=== PATIENT | male | born 1985 | race Two or more races ===

== ENCOUNTER 2022-08-28 15:00 | Outpatient (CLI) | payer OTHER ==
--- NOTE | 2022-08-28 15:46 | Sleep Patient Instructions ---
Sleep Center Visit Summary - Patient Visit Information Reason for Visit: Initial consult with patient on PAP therapy - Patient Instructions Additional Instructions: You will continue with CPAP therapy with pressure set at 10 cmH2O. A supply prescription will be updated with your DME. We encourage you to continue to try to lose weight. Please follow up with the sleep care office in 1 year. - Clinic Information Contact: [facility] [address] [place] [address] [email or web address] T: [phone]
--- NOTE | 2022-08-28 15:53 | SLEEP CARE CONSULTATION ---
Information from patient questionnaire entered by Carl Castro. I have reviewed and concur with the information entered by Carl Castro. This document represents the service I personally performed and the decisions made by me, Lexi Hyde ARNP. History of Present Illness Service Date and Time: 08/28/2022 1500 Reason for Visit: New patient Chief Complaint: reports: Unrefreshed sleep, Snoring Date of Onset: 2-3+YRS Usual bedtime: 8-9PM 12AM ON WEEKENDS Time it takes to fall asleep: QUICK Snores at night: Yes Observed to quit breathing while asleep: Yes Sleeps alone due to snoring: Yes Number of times waking at night: 2-3 Reasons for waking at night: reports: Snoring, Bathroom, Other (UNKNOWN) Toss, Turn, or Twitch while sleeping: Yes Recalls having dreams: Yes Usually gets out of bed at: 0430 WEEK 0800 WEEKENDS Feels refreshed in the morning: Yes Morning headache: Yes Sleepy or fatigued during the day: No Ever fallen asleep while driving: No Takes day naps: No Dreams during day naps: No Prior sleep studies: Yes Year and Where: [facility] [place], [place] 05/22/2020 Additional HPI information: ESTEE WEST was previously diagnosed to have mild, AHI 11, obstructive sleep apnea-hypopnea syndrome as seen in sleep study dated 05/22/2020 through [facility] in [place] and comes in today to establish care for CPAP therapy. - Parasomnia Symptoms Ever been unable to move upon waking from sleep: No Walks in sleep: No Talks in sleep: No Ever acted out dreams in sleep: No Ever felt weak in the knees when startled or emotional: No Bothered by creepy, crawly, restless sensations in legs: No Problems with memory or concentration: Yes CPAP Compliance Data - Data Reviewed with Patient Average duration of nightly device use: 3 hours 19 minutes Compliance rate %: 22 (55/90 days used) Current pressure setting (cmH2O): 10 Average residual AHI: 2.3 Central apnea: 0.5 Obstructive apnea: 1 Hypopnea: 0.7 Compliance data discussion: He has an Airsense 10 that was set up in 2020. He has been getting supplies through clinic in [place] in mail. He is using a full face mask. He does have extra supplies as needed. Subjective Missed days of use due to: reports: illness (bronchitis limiting use), other (will take mask off or disconnect without using knowing) Patient concerns: denies: aerophagia, mask discomfort, air blowing in eyes, mask leak noise, condensation in mask/hose, nasal congestion, dry mouth, nose, throat , epistaxis Observed to snore while using device: No Current pressure setting perceived as: comfortable On therapy, patient: reports: sleeping better, awakening more refreshed, being more awake and alert during the day, more rested overall. denies: drowsiness while driving Initial [place] Sleepiness Scale score: 6 (08/28/22) Past Medical History Past Medical History: reports: Anxiety, Other (gallbladder removed) Social History The patient's occupation is a AM. Patient is and lives in . Have you smoked in the past 12 months: No Years of smokin Quit date: 2006 Alcohol use: Yes Alcohol amount and frequency: 6-8 DRINKS ON WEEKENDS, quit about a month ago Caffeine use: Yes Caffeine amount and frequency: 1 CUP STRONG COFFEE DAILY Family History Family history of sleep disordered breathing: No Allergies and Home Medications Known drug allergies: No Drug allergies reviewed: Yes Home medication list reviewed: Yes Allergy and home medication list: Allergies No Known Drug Allergies Allergy (Verified 08/27/22 14:13) Medications: Amoxicillin, 2-3 days left (for bronchitis) Benadryl nightly, prn Review of Systems Weight gain over past 5 years: ranges from 195 to 230 depending upon if home or [place] to sea Cardiovascular: reports: high blood pressure (occasional, never placed on medication) Gastrointestinal: denies: heartburn Neurological: denies: headaches Psychiatric: reports: anxiety Ear/Nose/Throat: reports: nasal congestion. denies: tonsillectomy Physical Exam Vital signs obtained and entered by: CARL Bob MA Blood Pressure: 108/76 (LEFT ARM) Cuff size: regular Heart Rate: 78 O2 Saturation: 98 Height: 5 ft 8 in Weight: 230 lb 6.4 oz Body Mass Index: 35.0 BMI Classification: Obese Neck circumference: 17.5 Heart: regular rate and rhythm Lungs: clear bilaterally Impression and Plan 1. Obstructive Sleep Apnea-Hypopnea Syndrome, mild, with fair treatment compliance and good apnea control. On CPAP therapy, the patient has better sleep quality and is more rested overall. Patient states he has been having motivational issues using his CPAP. He also was sick with bronchitis for about a week and a half and unable to use the CPAP due to the coughing [place] the [place]. He has recommitted to improving his health and using his CPAP. I will update the prescription for his CPAP supplies and have him follow- up in 1 to 2 months to recheck his compliance. Patient's apnea severity and rationale for treatment to reduce apnea, improve sleep quality and reduce cardiovascular and cerebrovascular events was reviewed. I also reviewed the benefit of consistent device use of CPAP for anxiety. 2. Obesity, unspecified. Currently patients BMI is 35. He has started exercising and is going to be better with his diet. He has stopped drinking as well. Obesity increases the risk of apnea, CPAP pressure requirements and overall health risks especially cardiovascular and diabetes. Thus patient is advised to lose weight. * Continue auto CPAP pressure at 10 cmH2O * Update supply prescription * Notify me if snoring with mask or feeling that the pressure is too much or too little * Attempt to lose weight * Call this office if any problems using CPAP * Return for follow up in 1-2 months, or sooner if concerns arise Counseling Topics: Spare mask, Weight loss health impact Visit Type: In Office Time Spent with Patient (minutes): 31 Provider Statement: I spent 100% of the Face to Face Visit with the patient with greater than 50% spent counseling the patient and coordination of care.
[2022-08-28 16:29] VITALS: BP 108/76
== END 2022-08-28 15:01 | disposition home or self-care (01) ==
LOC: SC 15:00
PROVIDERS: ATTEND Nurse Practitioner Family
DX: G47.33 Obstructive sleep apnea (adult) (pediatric) (principal); E66.9 Obesity, unspecified; Z68.35 Body mass index [BMI] 35.0-35.9, adult; Z87.891 Personal history of nicotine dependence
CPT/HCPCS: 99203; 99212

== ENCOUNTER 2022-10-25 15:49 | Outpatient (CLI) | payer OTHER ==
--- NOTE | 2022-10-25 16:26 | Sleep Patient Instructions ---
Sleep Center Visit Summary - Patient Visit Information Reason for Visit: 2 MONTH FOLLOWUP FOR PAP THERAPY - Patient Instructions Additional Instructions: You were here for follow up of CPAP therapy. You will be continued on CPAP therapy with pressure at 10 cmH2O. You should follow up with sleep care in 12 months. You may contact us sooner for any questions or concerns. - Clinic Information Contact: [facility] [address] [place] [address] [email or web address] T: [phone]
--- NOTE | 2022-10-25 16:31 | SLEEP CARE CONSULTATION ---
Information from patient questionnaire entered by Carl Castro. I have reviewed and concur with the information entered by Carl Castro. This document represents the service I personally performed and the decisions made by me, Lexi Hyde ARNP. History of Present Illness Service Date and Time: 10/25/2022 1549 Previous diagnosis: Mild, Obstructive Sleep Apnea-Hypopnea Syndrome AHI: 11 (2020) Reason for follow up: other (2 MONTH F/U) Equipment type: CPAP (RESMED) Equipment obtained from: Other ([employer]; getting supplies) Mask style: Full face (hybrid) Backup mask available: Yes (other mask) Last cushion change: 2 weeks ago Prior sleep studies: Yes Year and Where: [facility] [place], [place] 05/22/2020 HPI additional information: ESTEE WEST was diagnosed to have mild, AHI 11, obstructive sleep apnea-hypopnea syndrome and returned today for CPAP therapy 2 month follow-up. Sleep Study - Results Prior sleep studies: Yes Year and Where: [facility] [place], [place] 05/22/2020 CPAP Compliance Data - Data Reviewed with Patient Average duration of nightly device use: 4 hours 7 minutes Compliance rate %: 50 (59/60 days used) Current pressure setting (cmH2O): 10 Average residual AHI: 2.6 Central apnea: 0.7 Obstructive apnea: 1.1 Hypopnea: 0.7 Average large leak: 1.5 L/min Subjective Missed days of use due to: reports: other (takes mask off without knowing during the night) Patient concerns: denies: aerophagia, mask discomfort, air blowing in eyes, mask leak noise, condensation in mask/hose, nasal congestion, dry mouth, nose, throat, epistaxis Observed to snore while using device: No Current pressure setting perceived as: comfortable On therapy, patient: reports: sleeping better, awakening more refreshed, being more awake and alert during the day, more rested overall. denies: drowsiness while driving Initial [place] Sleepiness Scale score: 6 Current [place] Sleepiness Scale score: 2 (10/25/22) Allergies and Home Medications Known drug allergies: No Drug allergies reviewed: Yes Home medication list reviewed: Yes (no changes) Allergy and home medication list: Allergies No Known Drug Allergies Allergy (Verified 10/24/22 15:28) Review of Systems Review of systems same as previous: Yes (no changes) Physical Exam Vital signs obtained and entered by: CARL Bob MA Blood Pressure: 122/72 (LEFT ARM) Cuff size: regular Heart Rate: 78 O2 Saturation: 98 Height: 5 ft 8 in Weight: 233 lb 12.8 oz Body Mass Index: 35.5 BMI Classification: Obese Impression and Plan 1. Obstructive Sleep Apnea-Hypopnea Syndrome, mild, with fair treatment compliance and good apnea control. On CPAP therapy, the patient has better sleep quality and is more rested overall. Patient has been able to increase time in the mask from 22 to 50%. He states he still will wake up and find that he is taking the mask off. He will replace it when he does find it off. I encouraged him to ask his to help remind him if she notices that the mask is off during the night. He is really trying to increase his compliance and has no complaints about CPAP use. Patient's apnea severity and rationale for treatment to reduce apnea, improve sleep quality and reduce cardiovascular and cerebrovascular events was reviewed. I also reviewed the benefit of consistent device use of CPAP for anxiety. 2. Obesity, unspecified. Currently patients BMI is 35.5. Obesity increases the risk of apnea, CPAP pressure requirements and overall health risks especially cardiovascular and diabetes. Thus patient is advised to lose weight. * Continue CPAP pressure at 10 cmH2O * Notify me if snoring with mask or feeling that the pressure is too much or too little * Attempt to lose weight * Call this office if any problems using CPAP * Return for follow up in 1-2 months, or sooner if concerns arise Counseling Topics: Spare mask, Weight loss health impact Visit Type: In Office Time Spent with Patient (minutes): 16 Provider Statement: I spent 100% of the Face to Face Visit with the patient with greater than 50% spent counseling the patient and coordination of care.
[2022-10-25 16:39] VITALS: BP 122/72; O2SAT 98
== END 2022-10-25 15:50 | disposition home or self-care (01) ==
LOC: SC 15:49
PROVIDERS: ATTEND Nurse Practitioner Family
DX: G47.33 Obstructive sleep apnea (adult) (pediatric) (principal); E66.9 Obesity, unspecified; Z68.35 Body mass index [BMI] 35.0-35.9, adult
CPT/HCPCS: 99212

== ENCOUNTER 2023-04-03 13:17 | Outpatient (CLI) | payer OTHER ==
--- NOTE | 2023-04-03 13:52 | Sleep Patient Instructions ---
Sleep Center Visit Summary - Patient Visit Information Reason for Visit: 5-month follow-up - Patient Instructions Additional Instructions: You were here for follow up of CPAP therapy. You will be continued on CPAP therapy with pressure at 10 cmH2O. I have written to update your supply prescription and added a deployment package request. You should follow up with sleep care in 12 months. You may contact us sooner for any questions or concerns. - Clinic Information Contact: [facility] [address] [place] [id number] [email or web address] T: [phone]
--- NOTE | 2023-04-03 13:58 | SLEEP CARE CONSULTATION ---
Information from patient questionnaire entered by Carl Castro. I have reviewed and concur with the information entered by Carl Castro. This document represents the service I personally performed and the decisions made by , Lexi Hyde ARNP. History of Present Illness Service Date and Time: 04/03/2023 1317 Previous diagnosis: Mild, Obstructive Sleep Apnea-Hypopnea Syndrome AHI: 11 Reason for follow up: other (5 MONTH F/U) Equipment type: CPAP ([employer] Airsense 10, s/u 07/2020) Equipment obtained from: Other ([employer]; needs supplies) Mask style: Full face Backup mask available: No (needs supplies) Last cushion change: few weeks ago Prior sleep studies: Yes Year and Where: [facility] [place], [place] 05/22/2020 HPI additional information: ESTEE WEST was diagnosed to have mild, AHI 11, obstructive sleep apnea-hypopnea syndrome and returned today for CPAP therapy five month follow-up. Sleep Study - Results Prior sleep studies: Yes Year and Where: [place], [place] 05/22/2020 CPAP Compliance Data - Data Reviewed with Patient Average duration of nightly device use: 4 HRS 20 MINS Compliance rate %: 38 (11/02/22-03/31/23; last 30 days 63%) Current pressure setting (cmH2O): 10 Average residual AHI: 1.4 Central apnea: 0.3 Obstructive apnea: 0.8 Average large leak: 0.7 L/min Subjective Missed days of use due to: reports: other (sometimes laziness) Patient concerns: reports: mask discomfort (mask headgear needs replacing), mask leak noise, condensation in mask/hose (sometimes). denies: aerophagia, air blowing in eyes, nasal congestion, dry mouth, nose, throat, epistaxis Observed to snore while using device: No Current pressure setting perceived as: comfortable On therapy, patient: reports: sleeping better, awakening more refreshed, being more awake and alert during the day, more rested overall, drowsiness while driving Initial [place] Sleepiness Scale score: 6 Current [place] Sleepiness Scale score: 5 (04/03/23) Allergies and Home Medications Known drug allergies: No Drug allergies reviewed: Yes Home medication list reviewed: Yes (no changes) Allergy and home medication list: Allergies No Known Drug Allergies Allergy (Verified 04/02/23 11:31) Review of Systems Review of systems same as previous: Yes (NONE ) Physical Exam Vital signs obtained and entered by: CARL Bob MA Blood Pressure: 152/82 (LEFT ARM) Cuff size: regular Heart Rate: 66 O2 Saturation: 98 Height: 5 ft 8 in Weight: 240 lb 6.4 oz Weight change since last visit: 7 lb gain Body Mass Index: 36.5 BMI Classification: Obese Impression and Plan 1. Obstructive Sleep Apnea-Hypopnea Syndrome, mild, with fair treatment compliance and good apnea control. On CPAP therapy, the patient has better sleep quality and is more rested overall. He has significant improvement of his sleep apnea and is satisfied with current CPAP therapy. He says he was lazy for a while but had tried to start using his machine more. His last 30 days of use is at 63%. I advised him to continue to use his CPAP every night for all sleep. He voiced understanding. He has not gotten any supplies for a long time and says he has a deployment coming up at the first of May, possibly end of April. I will update his supply prescription and add a request for a deployment supply package. Patient's apnea severity and rationale for treatment to reduce apnea, improve sleep quality and reduce cardiovascular and cerebrovascular events was reviewed. I also reviewed the benefit of consistent device use of CPAP for anxiety. 2. Obesity, unspecified. Currently patients BMI is 36.5. Obesity increases the risk of apnea, CPAP pressure requirements and overall health risks especially cardiovascular and diabetes. Thus patient is advised to lose weight. * Continue CPAP pressure at 10 cmH2O * Deployment package for 8 month starting around end of May 18 added to supply prescription update * Update supply prescription * Notify me if snoring with mask or feeling that the pressure is too much or too little * Attempt to lose weight * Call this office if any problems using CPAP * Return for follow up in 1 year, or sooner if concerns arise Counseling Topics: Weight loss health impact Prescriptions: Device supplies (with deployment package for 8 months starting end of ) Follow up with Sleep Care in: 1 year Visit Type: In Office Time Spent with Patient (minutes): 21 Provider Statement: I spent 100% of the Face to Face Visit with the patient with greater than 50% spent counseling the patient and coordination of care.
[2023-04-03 13:59] VITALS: BP 152/82; O2SAT 98
== END 2023-04-03 13:18 | disposition home or self-care (01) ==
LOC: SC 13:17
PROVIDERS: ATTEND Nurse Practitioner Family
DX: G47.33 Obstructive sleep apnea (adult) (pediatric) (principal); E66.9 Obesity, unspecified; Z68.36 Body mass index [BMI] 36.0-36.9, adult
CPT/HCPCS: 99212; 99213